=== PATIENT | male | born 1985 | race Caucasian/White ===

== ENCOUNTER 2024-07-12 11:59 | Emergency (ER) | payer OTHER ==
[~2024-07-12] VITALS: Ht 170.2 cm; Wt 64.9 kg
[2024-07-12] MEDS ORDERED: IBUPROFEN 200 MG TABLET ONE (13:03)
[2024-07-12] MEDS ORDERED: ACETAMINOPHEN 500 MG TABLET ONE (13:03)
[2024-07-12] MEDS: IBUPROFEN 200 MG TABLET PO ONE (13:06)
[2024-07-12] MEDS: ACETAMINOPHEN 500 MG TABLET PO ONE (13:07)
[2024-07-12] MEDS ORDERED: IBUP-1955 PO (14:07)
[2024-07-12 14:27] VITALS: BP 127/82; TEMP 98; O2SAT 98
[2024-07-13] MEDS ORDERED: HYDR-3980 PO (16:25)
== END 2024-07-12 14:23 | disposition home or self-care (01) ==
LOC: ER 11:59
DX: Z04.1 Encounter for examination and observation following transport accident (principal); M79.10 Myalgia, unspecified site; M25.561 Pain in right knee; R51.9 Headache, unspecified; V89.2XXA Person injured in unspecified motor-vehicle accident, traffic, initial encounter; Y93.89 Activity, other specified; Y92.410 Unspecified street and highway as the place of occurrence of the external cause; Y99.8 Other external cause status
CPT/HCPCS: 70450; 71045; 73120; 73560; A4606; A4663; A9150